=== PATIENT | female | born 1950 | race Caucasian/White ===

== ENCOUNTER 2016-10-20 14:28 | Outpatient (CLI) | payer MEDICARE ==
--- NOTE | 2016-10-26 13:17 | Mammography Report ---
DIGITAL SCREENING MAMMOGRAM: 10/20/2016 CLINICAL INDICATION: A 66-year-old for screening. COMPARISON: 08/2015, 08/2014, 07/2013, 11/2010, 10/2009 TECHNIQUE: Routine CC and MLO projections were obtained of the breasts. FINDINGS: Scattered fibroglandular tissue is present within the breasts. There are no dominant kesha s, suspicious microcalcifications, or secondary signs of malignancy. In comparison to the previous st udies, there are no significant changes. ASSESSMENT: NO MAMMOGRAPHIC EVIDENCE OF MALIGNANCY. NO SIGNIFICANT INTERVAL CHANGES. RECOMMENDATION: Screening mammography is recommended annually. BIRADS category 1 - negative. STANDARD QUALIFYING STATEMENTS 1. This examination was reviewed with the aid of Computed-Aided Detection (CAD). 2. A negative or benign imaging report should not delay biopsy if clinically suspicious findings are present. Consider surgical consultation if warranted. More than 5% of cancers are not identified by i maging. 3. Dense breasts may obscure an underlying neoplasm. JOB #: [id number] EXT JOB #:[id number]
== END 2016-10-20 14:29 | disposition home or self-care (01) ==
LOC: DI 14:28
PROVIDERS: ATTEND Internal Medicine
DX: Z12.31 Encounter for screening mammogram for malignant neoplasm of breast (principal)
CPT/HCPCS: 77067

== ENCOUNTER 2017-11-01 15:10 | Outpatient (CLI) | payer MEDICARE ==
--- NOTE | 2017-11-03 15:04 | Mammography Report ---
Procedure Date: 11/01/2017 Accession Number: [id number] / [id number] Procedure: DENNIS - Screening Mammo Dig Bilat CPT Code: FULL RESULT: EXAM: Screening Mammo Dig Bilat DATE: 11/01/2017 4:00 PM CLINICAL HISTORY: 67-year-old for screening COMPARISON: 10/20/2016, 09/11/2015, 09/03/2014, 08/24/2013, 08/17/2013, 11/21/2010, 11/15/2009 TECHNIQUE: Bilateral CC and MLO views were obtained. FINDINGS: The breasts demonstrate scattered fibroglandular densities bilaterally. No suspicious masses, clustered microcalcifications, or regions of architectural distortion are identified. IMPRESSION: Negative examination RECOMMENDATION: Routine annual screening unless otherwise clinically indicated. BIRADS CATEGORY 1: Negative STANDARD QUALIFYING STATEMENTS: 1. This examination was reviewed with the aid of Computer-Aided Detection (CAD). 2. A negative or benign imaging report should not delay biopsy if clinically suspicious findings are present. Consider surgical consultation if warrented. More than 5% of cancers are not identified by imaging. 3. Dense breasts may obscure an underlying neoplasm.
== END 2017-11-01 15:11 | disposition home or self-care (01) ==
LOC: DI 15:10
PROVIDERS: ATTEND Internal Medicine
DX: Z12.31 Encounter for screening mammogram for malignant neoplasm of breast (principal)
CPT/HCPCS: 77067

== ENCOUNTER 2018-11-19 14:47 | Emergency (ER) | payer MEDICARE ==
[2018-11-19] MEDS ORDERED: BUFFERED LIDOCAINE 10 ML SYRINGE SUBQ STA (15:09)
[2018-11-19] MEDS ORDERED: TETANUS/DIPHTHERIA/PERTUSSIS 0.5 ML SYRINGE IM ONE (15:09)
--- NOTE | 2018-11-19 15:11 | ED Physician Documentation ---
PD HPI UPPER EXT INJURY - Stated complaint Stated Complaint: RT FINGER SWELLING - Chief complaint Chief Complaint: Wound - History obtained from History obtained from: Patient - History of Present Illness Location: Right (Almost 2 weeks ago she tripped and jammed her hand on wood in the [place] and has a persistent wound with potential splinter in the right hand.) Review of Systems Constitutional: denies: Fever, Chills Respiratory: denies: Dyspnea, Cough GI: denies: Abdominal Pain, Nausea, Vomiting PD PAST MEDICAL HISTORY - Present Medications Home Medications: Ambulatory Orders Medication Instructions Recorded Confirmed Beclomethasone Dipropionate [Qvar] 1 - 2 gm IH DAILY 01/12/13 09/12/18 Ibuprofen [Advil] 100 mg PO DAILY PRN 01/12/13 09/12/18 Montelukast Sodium [Singulair] 10 mg PO DAILY 01/12/13 09/12/18 Multivitamin [Multivitamins] 1 each PO DAILY 01/12/13 09/12/18 Calcium Carb, Citrate/Vit D3 500 mg PO DAILY 02/11/15 09/12/18 [Calcium + D3 ER Tablet] Amox/Clav 875/125 [Augmentin] 1 each PO Q12H #14 tablet 11/19/18 - Allergies Allergies/Adverse Reactions: Allergies Allergy/AdvReac Type Severity Reaction Status Date / Time grass pollen Allergy Mild Rash Verified 09/12/18 16:34 grass pollen-perennial rye, Allergy Mild Rash Verified 09/12/18 16:34 standar [grass poll-perennial rye,std] dust Allergy Mild STUFFY NOSE Uncoded 09/12/18 16:34 - Social History Does the pt smoke?: No Smoking Status: Never smoker PD ED PE NORMAL - Vitals Vital signs reviewed: Yes - General General: Alert and oriented X 3, No acute distress - Extremities Extremities: Other (There is a purulent wound on the palmar side of the right hand at the level of the second MCP with a little bit of drainage that was cultured during examination, potential palpable foreign body, not quite sure. Full range of motion without evidence of flexor tenosynovitis. No spreading cellulitis.) - Neuro Neuro: Alert and oriented X 3, Normal speech Results - Vitals Vitals: Vital Signs - 24 hr 11/19/18 14:51 Temperature 36.5 C Heart Rate 62 Respiratory 16 Rate Blood Pressure 157/65 H O2 Saturation 94 Oxygen O2 Source Room air Procedures - General procedure General procedure: The wound on the left hand was prepped and draped and locally infiltrated with lidocaine and a tiny incision was made and a wood foreign body was found and expressed. The patient tolerated this well. Departure - Departure Disposition: 01 Home, Self Care Clinical Impression: Open wound with foreign body Condition: Good Record reviewed to determine appropriate education?: Yes Instructions: ED Wound Care Prescriptions: Amox/Clav 875/125 [Augmentin] 1 each PO Q12H #14 tablet Comments: Return if you develop increasing pain, swelling, redness. We are performing a wound culture, if an antibiotic changes necessary we will call you in about 3 days.
[2018-11-19] MEDS ORDERED: AMOX/CLAV 875 MG/125 MG TABLET PO STA (15:35)
[2018-11-19 16:30] VITALS: BP 132/63
== END 2018-11-19 16:31 | disposition home or self-care (01) ==
LOC: ED 14:47
DX: S61.441A Puncture wound with foreign body of right hand, initial encounter (principal); W01.0XXA Fall on same level from slipping, tripping and stumbling without subsequent striking against object, initial encounter; Y92.821 Forest as the place of occurrence of the external cause
CPT/HCPCS: 10120; 87070; 87205; 90471; 90715; 99283; A9270

== ENCOUNTER 2019-02-07 08:50 | Outpatient (CLI) | payer MEDICARE ==
--- NOTE | 2019-02-07 12:36 | Mammography Report ---
Reason: ROUTINE MAMMO Procedure Date: 02/07/2019 Accession Number: [id number] / [id number] Procedure: DENNIS - Screening Mammo w/Brodie CPT Code: FULL RESULT: EXAM: Screening Mammo w/Brodie DATE: 02/07/2019 9:19 AM CLINICAL HISTORY: Routine screening TECHNIQUE: (B) - Bilateral CC and MLO views were obtained. COMPARISON: 11/01/2017, 10/20/2016, 09/11/2015 and 09/03/2014 PARENCHYMAL PATTERN: (A) - The breasts demonstrate scattered fibroglandular densities bilaterally. FINDINGS: No significant interval change. There are no suspicious masses, calcifications, or areas of distortion. IMPRESSION: Negative examination. BI-RADS category 1. RECOMMENDATION: (ANNUAL) - Recommend routine annual screening mammography. BI-RADS CATEGORY: (1) - Negative. STANDARD QUALIFYING STATEMENTS: 1. This examination was not reviewed with the aid of Computer-Aided Detection (CAD). 2. A negative or benign imaging report should not preclude biopsy if clinically suspicious findings are present. 3. Dense breasts may obscure an underlying neoplasm. 4. This examination was reviewed with the aid of 3D breast imaging (tomosynthesis).
== END 2019-02-07 08:51 | disposition home or self-care (01) ==
LOC: DI 08:50
PROVIDERS: ATTEND Internal Medicine
DX: Z12.31 Encounter for screening mammogram for malignant neoplasm of breast (principal)
CPT/HCPCS: 77063; 77067

== ENCOUNTER 2019-04-03 10:39 | Outpatient (CLI) | payer MEDICARE ==
[2019-04-03] MEDS ORDERED: IOVERSOL 320 50 ML VIAL ONE ×2 (10:56→11:00)
[2019-04-03] MEDS ORDERED: IOVERSOL 320 100 ML VIAL IVP ONE ×2 (10:57→12:33)
[2019-04-03] MEDS ORDERED: IOVERSOL 320 50 ML VIAL PO ONE (12:33)
--- NOTE | 2019-04-04 11:38 | CT Report ---
Reason: COLON CA Procedure Date: 04/03/2019 Accession Number: [id number] / [id number] Procedure: CT - Abdomen/Pelvis W CPT Code: Final Report FULL RESULT: EXAM: CT ABDOMEN AND PELVIS EXAM DATE: 04/03/2019 12:31 PM. CLINICAL HISTORY: COLON CA. COMPARISONS: ABDOMEN/PELVIS W/ 04/21/2018 9:36 AM. TECHNIQUE: Routine helical CT imaging was performed through the abdomen and pelvis. IV contrast: OPTI 320 100ML. Enteric contrast: No. Reconstructions: Coronal and sagittal. In accordance with CT protocol optimization, one or more of the following dose reduction techniques were utilized for this exam: automated exposure control, adjustment of mA and/or KV based on patient size, or use of iterative reconstructive technique. FINDINGS: Lung Bases: Unremarkable. Pericardial lymph nodes are again demonstrated an increased in size measuring up to 8 mm, previously 4 mm in short axis (series 3, image 11), 7 mm, previously 4 mm (series 3, image 13) and 8 mm, previously 7 mm (series 3, image 12). Liver: Normal. No masses. Gallbladder/Bile Ducts: The gallbladder is absent. Spleen: Normal. Pancreas: Normal. Adrenal Glands: Normal. Kidneys: Left renal cyst redemonstrated measuring up to 3.1 cm, previously 2.7 cm, and 19 HU consistent with a simple cyst. No hydronephrosis. No solid lesions. Peritoneal Cavity/Bowel: No bowel obstruction or inflammatory process associated with the bowel. Peritoneal carcinomatosis is redemonstrated with ill-defined soft tissue along the anterior abdomen and right upper pelvis (series 3, image 56). This appears similar to the prior examination. There is a peritoneal implant along the anterior-inferior aspect of the liver measuring up to 19 mm, previously 17 mm (series 3, image 28) and a peritoneal implant along the posterior inferior aspect of the liver measuring 11 mm, previously 7 mm (series 3, image 31). The appendix is well visualized and normal. Pelvic Organs: Normal. The bladder and visualized pelvic organs are within normal limits. Vasculature: No aneurysms or other significant abnormality. Bones: No significant abnormality. Other: Multiple new soft tissue nodules in the subcutaneous fat overlying the left and right lower back measuring up to 14 mm on (series 3, image 54), 12 mm on (series 3, image 47) and 12 mm on (series 3, image 47). IMPRESSION: 1. Multiple new soft tissue nodules in the subcutaneous fat overlying the left and right lower back measuring up to 14 mm. This is nonspecific but metastatic disease is not excluded. 2. Pericardial lymph nodes are again demonstrated an increased in size, as above. 3. Peritoneal carcinomatosis is again demonstrated with mesenteric implants along the anterior aspect of the abdomen and right upper pelvis, similar to the prior examination with increasing size of mesenteric implants along the anterior and posterior inferior aspect of the liver, as above. 4. Retroperitoneal lymphadenopathy is again demonstrated and slightly increased in size from the prior examination, as above. 5. Overall there appears to be a continued subtle progression of metastatic disease with new implants in the subcutaneous fat along the lower back. RADIA
--- NOTE | 2019-04-04 12:07 | CT Report ---
Reason: COLON CA Procedure Date: 04/03/2019 Accession Number: [id number] / [id number] Procedure: CT - CHEST W CPT Code: Final Report FULL RESULT: EXAM: CT CHEST EXAM DATE: 04/03/2019 12:31 PM. CLINICAL HISTORY: COLON CA. COMPARISONS: ABDOMEN/PELVIS W04/21/2018 9:36 AM CHEST W04/21/2018 9:36 AM. TECHNIQUE: Routine helical CT imaging was performed through the chest. IV contrast: None. Reconstructions: Coronal and sagittal. In accordance with CT protocol optimization, one or more of the following dose reduction techniques were utilized for this exam: automated exposure control, adjustment of mA and/or KV based on patient size, or use of iterative reconstructive technique. FINDINGS: Lungs/Pleura: Pleural nodule along the posterior medial aspect of the left lower lobe measuring 4 mm, previously 3 mm (series 3, image 266). There is and adjacent pleural nodule measuring 4 mm, previously 4 mm. No focal consolidation or pleural effusion. Mediastinum: Multiple enlarging pericardial lymph nodes described in detail in the abdominal CT report from the same day 04/04/2019. Bones: Unremarkable. Visualized Abdomen: Unremarkable. Other: None. IMPRESSION: 1. Pleural nodules along the left lower lobe posteriorly are similar in size and number to the prior examination with no enlarging nodules or suspicious pulmonary nodules or masses. 2. Multiple enlarging pericardial lymph nodes are described in detail in the abdominal CT report from the same day dated 04/04/2019. RADIA
== END 2019-04-03 10:40 | disposition home or self-care (01) ==
LOC: DI 10:39
PROVIDERS: ATTEND Internal Medicine Hematology & Oncology
DX: C7A.019 Malignant carcinoid tumor of the small intestine, unspecified portion (principal); C7B.04 Secondary carcinoid tumors of peritoneum; C7B.09 Secondary carcinoid tumors of other sites; R91.8 Other nonspecific abnormal finding of lung field; R59.0 Localized enlarged lymph nodes
CPT/HCPCS: 71260; 74177; Q9967

== ENCOUNTER 2019-05-04 20:48 | Emergency (ER) | payer MEDICARE ==
[2019-05-04] MEDS ORDERED: SODIUM CHLORIDE 0.9% 1,000 ML IV ONE (21:13)
[2019-05-04] MEDS ORDERED: MORPHINE 2 MG/ML CARPUJECT IVP STA (21:13)
[2019-05-04] MEDS ORDERED: ONDANSETRON 4 MG/2 ML VIAL IVP STA ×2 (21:13→23:08)
[2019-05-04 21:14] LABS: BILIRUBIN,URINE NEGATIVE (NEGATIVE); CLARITY,URINE CLEAR (CLEAR); GLUCOSE, URINE (UA) NEGATIVE (NEGATIVE); KETONES,URINE (UA) 15 mg/dL (NEGATIVE); LEUKOCYTE ESTERASE, URINE NEGATIVE (NEGATIVE); NITRITE,URINE NEGATIVE (NEGATIVE); OCCULT BLOOD,URINE TRACE-INTA (NEGATIVE); PROTEIN,URINE >=300 mg/dL (NEGATIVE); UROBILINOGEN,URINE 0.2 (NORMAL) E.U./dL (NORMAL)
--- NOTE | 2019-05-04 21:15 | ED Physician Documentation ---
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 Patient states that the pain began around 24 hours ago and has been at times sharp but mostly constant and located more in her right flank but radiates can diffusely throughout her abdomen. She has had 3 episodes of vomiting is been unable to keep down fluids. She has also had some looser stool, though at baseline her stool is somewhat loose. She denies fever. No dysuria. Review of Systems Constitutional: denies: Fever Cardiac: denies: Chest pain / pressure Respiratory: denies: Dyspnea GI: reports: Abdominal Pain, Vomiting, Diarrhea : denies: Dysuria Neurologic: denies: Generalized weakness Immunocompromised: reports: Other (Hx neuroendocrine cancer) PD PAST MEDICAL HISTORY - Past Medical History Respiratory: Asthma GI: Other (Neuroendocrine cancer with peritoneal metastasis) - Past Surgical History General: Other (Tumor resections) - Present Medications Home Medications: Ambulatory Orders Medication Instructions Recorded Confirmed Beclomethasone Dipropionate [Qvar] 1 - 2 gm IH DAILY 01/12/13 04/10/19 Ibuprofen [Advil] 100 mg PO DAILY PRN 01/12/13 04/10/19 Montelukast Sodium [Singulair] 10 mg PO DAILY 01/12/13 04/10/19 Multivitamin [Multivitamins] 1 each PO DAILY 01/12/13 04/10/19 Calcium Carb, Citrate/Vit D3 500 mg PO DAILY 02/11/15 04/10/19 [Calcium + D3 ER Tablet] Amox/Clav 875/125 [Augmentin] 1 each PO Q12H #14 tablet 11/19/18 04/10/19 Ondansetron Odt [Zofran] 4 mg TL Q6H PRN #10 tablet 05/04/19 - Allergies Allergies/Adverse Reactions: Allergies Allergy/AdvReac Type Severity Reaction Status Date / Time grass pollen Allergy Mild Rash Verified 05/04/19 20:55 grass pollen-perennial rye, Allergy Mild Rash Verified 05/04/19 20:55 standar [grass poll-perennial rye,std] dust Allergy Mild STUFFY NOSE Uncoded 05/04/19 20:55 - Living Situation Living Arrangement: reports: At home - Social History Does the pt smoke?: No Smoking Status: Never smoker PD ED PE NORMAL - Vitals Vital signs reviewed: Yes - General General: Alert and oriented X 3, Other (Non-toxic, mildly uncomfortable) - HEENT HEENT: PERRL - Neck Neck: Supple, no meningeal sign - Cardiac Cardiac: RRR, No murmur - Respiratory Respiratory: Clear bilaterally - Abdomen Abdomen: Normal bowel sounds, Soft, Non distended, Other (Mildly diffusely tender, slightly worse in RLQ, no guarding.) - Derm Derm: Warm and dry - Extremities Extremities: No deformity - Neuro Neuro: Alert and oriented X 3 - Psych Psych: Normal mood, Normal affect Results - Vitals Vitals: Vital Signs - 24 hr 05/04/19 05/04/19 05/04/19 20:52 21:03 23:14 Temperature 36.6 C 36.6 C Heart Rate 65 65 62 Respiratory 18 18 16 Rate Blood Pressure 164/70 H 164/70 H 153/77 H O2 Saturation 98 98 93 Oxygen O2 Source Room air - Labs Labs: Laboratory Tests 05/04/19 05/04/19 05/04/19 21:05 21:14 21:14 WBC 10.8 RBC 5.20 Hgb 15.4 Hct 45.3 MCV 87.1 MCH 29.6 MCHC 34.0 RDW 12.8 Plt Count 287 MPV 9.7 Neut # (Auto) 9.7 H Lymph # (Auto) 0.7 L Navarro # (Auto) 0.3 Eos # (Auto) 0.0 Baso # (Auto) 0.0 Absolute Nucleated RBC 0.00 Nucleated RBC % 0.0 Sodium 136 Potassium 3.4 L Chloride 98 L Carbon Dioxide 24 Anion Gap 14.0 H BUN 17 Creatinine 0.8 Estimated GFR (MDRD) 71 L Glucose 152 H Calcium 9.3 Total Bilirubin 1.0 AST 29 ALT 26 Alkaline Phosphatase 90 Total Protein 8.4 H Albumin 4.6 Globulin 3.8 Albumin/Globulin Ratio 1.2 Lipase 28 Urine Color YELLOW Urine Clarity CLEAR Urine pH 6.0 Ur Specific [place] >=1.030 H Urine Protein >=300 H Urine Glucose (UA) NEGATIVE Urine Ketones 15 H Urine Occult Blood TRACE-INTA Urine Nitrite NEGATIVE Urine Bilirubin NEGATIVE Urine Urobilinogen 0.2 (NORMAL) Ur Leukocyte Esterase NEGATIVE Urine RBC 0-5 Urine WBC 0-3 Ur Squamous Epith Cells FEW Squamous Urine Bacteria None Seen Urine Mucus Moderate Strands Ur Microscopic Review INDICATED Urine Culture Comments NOT INDICATED - Rads (name of study) CT abd/pelvis W Radiology: Other (Stable adenopathy and peritoneal carcinamatosis, no acute change or obstruction or perforation.) PD MEDICAL DECISION MAKING - ED course Complexity details: considered differential (Obstruction, gastroenteritis, bowel perforation, pancreatitis, enteritis, electrolyte abnormality,) ED course: Pt is non-toxic on arrival, she has mild abdominal tenderness, vital signs unremarkable. She was given zofran, fluids, morphine. CBC unremarkable, abdominal panel unremarkable other than mild hypokalemia of 3.4, UA negative. CT scan shows no acute changes, obstruction, or obvious cause of her pain. She has not had any blood in her stool and her history makes mesenteric ischemia highly unlikely. Given she has had crampy pain, vomiting, and looser stool, gastroenteritis is possible. After zofran she is able to tolerate PO fluids and is feeling well, has minimal discomfort. I discussed the results, patient is comfortable going home and she understands that if her symptoms are worsening or she has any new concerning symptoms she does need re-evaluation given her extensive abdominal history. Pt was discharged home in the care of family. Departure - Departure Disposition: 01 Home, Self Care Clinical Impression: Vomiting Qualifiers: Vomiting type: unspecified Vomiting Intractability: non-intractable Nausea presence: with nausea Qualified Code(s): R11.2 - Nausea with vomiting, unspecified Abdominal pain Qualifiers: Abdominal location: unspecified location Qualified Code(s): R10.9 - Unspecified abdominal pain Condition: Good Instructions: ED Abdominal Pain Unkn Cause Follow-Up: Whit Lanier MD [Primary Care Provider] - Within 1 week Prescriptions: Ondansetron Odt [Zofran] 4 mg TL Q6H PRN #10 tablet PRN Reason: Nausea / Vomiting Comments: You were seen today for abdominal pain and vomiting. Your labs are reassuring, your potassium was a tiny bit low at 3.4. Your CT scan did not show any obvious explanation for your pain. A stomach bug/gastroenteritis is one possibility. I am glad that you are feeling better. You may use the Zofran for nausea and vomiting, and please try to hydrate adequately. If you are developing worsening abdominal pain, vomiting despite the Zofran, fever, or any other concerning symptoms, please return to the emergency department. Even if you are feeling better, please follow-up with your primary care provider. Discharge Date/Time: 05/05/19 00:20
[2019-05-04 21:23] LABS: BASOPHILS % (AUTO) 0.3 %; HGB - HEMOGLOBIN 15.4 g/dL (12.0-16.0); LYMPHOCYTES # (AUTO) 0.7 10^3/uL (1.5-3.5); LYMPHOCYTES % (AUTO) 6.9 %; MEAN CORPUSCULAR HEMOGLOBIN 29.6 pg (27.0-31.0); MEAN CORPUSCULAR VOLUME 87.1 fL (81.0-99.0); MEAN PLATELET VOLUME 9.7 fL (7.9-10.8); MONOCYTES # (AUTO) 0.3 10^3/uL (0.0-1.0); MONOCYTES % (AUTO) 2.4 %; NEUTROPHILS # (AUTO) 9.7 10^3/uL (1.5-6.6); NEUTROPHILS % (AUTO) 89.8 %; PLT - PLATELET COUNT 287 10^3/uL (130-450); RED CELL DISTRIBUTION WIDTH 12.8 % (12.0-15.0); WHITE BLOOD COUNT 10.8 x10^3/uL (4.8-10.8)
[2019-05-04 21:24] LABS: BACTERIA,URINE None Seen /HPF (None Seen); MUCUS,URINE Moderate Strands; RBC,URINE 0-5 /HPF (0-5); SQUAMOUS EPITHELIAL CELL,UR FEW Squamous (<= Few)
[2019-05-04 21:37] LABS: ALBUMIN 4.6 g/dL (3.2-5.5); ALBUMIN/GLOBULIN RATIO 1.2 (1.0-2.2); CALCIUM 9.3 mg/dL (8.5-10.3); CREATININE 0.8 mg/dL (0.4-1.0); TOTAL PROTEIN 8.4 g/dL (6.7-8.2)
[2019-05-04] MEDS ORDERED: IOVERSOL 320 100 ML VIAL IVP ONE ×2 (21:55→22:15)
--- NOTE | 2019-05-04 23:00 | CT Report ---
Reason: Abdominal and flank pain,vom, hx neuroendocrine CA Procedure Date: 05/04/2019 Accession Number: [id number] / [id number] Procedure: CT - Abdomen/Pelvis W CPT Code: Final Report FULL RESULT: EXAM: CT ABDOMEN AND PELVIS EXAM DATE: 05/04/2019 10:17 PM. CLINICAL HISTORY: Abdominal and flank pain,vom, hx neuroendocrine CA. COMPARISONS: ABDOMEN/PELVIS W/ 04/03/2019 12:19 PM ABDOMEN/PELVIS W/ 04/27/2017 11:58 AM. TECHNIQUE: Routine helical CT imaging was performed through the abdomen and pelvis. IV contrast: OPTI 320 100ML. Enteric contrast: No. Reconstructions: Coronal and sagittal. In accordance with CT protocol optimization, one or more of the following dose reduction techniques were utilized for this exam: automated exposure control, adjustment of mA and/or KV based on patient size, or use of iterative reconstructive technique. FINDINGS: Lung Bases: Unremarkable. Liver: Diffuse fatty infiltration. Tumor studding along the liver surface. Gallbladder/Bile Ducts: Postoperative changes of cholecystectomy. No biliary dilatation. Spleen: Normal. Pancreas: Normal. Adrenal Glands: Normal. Kidneys: Cortical cysts. No solid mass, hydronephrosis, or nephrolithiasis. Peritoneal Cavity/Bowel: Postoperative changes in the small bowel of the lower abdomen. Stable omental studding, mesenteric, retrocrural, and retroperitoneal adenopathy. No evidence of bowel obstruction or perforation. Pelvic Organs: Postoperative changes of hysterectomy. Peritoneal studding in the pelvis. Vasculature: Atherosclerotic calcifications. Bones: No significant abnormality. Other: Stable soft tissue nodules in the posterior subcutaneous of the back. IMPRESSION: Stable adenopathy and peritoneal carcinomatosis. No evidence of bowel obstruction or perforation. RADIA
[2019-05-04 23:14] VITALS: BP 153/77
--- NOTE | 2019-05-05 16:37 | ED Physician Documentation ---
ED Addendum - Addendum Addendum: 05/05/19 16:36 Zofran is not covered by her insurance, changed to Phenergan 25 mg p.o. every 6 hours as needed nausea vomiting dispense #10
== END 2019-05-05 00:20 | disposition home or self-care (01) ==
LOC: ED 20:48
DX: R10.84 Generalized abdominal pain (principal); R11.2 Nausea with vomiting, unspecified; E87.6 Hypokalemia; C78.6 Secondary malignant neoplasm of retroperitoneum and peritoneum; Z85.89 Personal history of malignant neoplasm of other organs and systems; Z90.49 Acquired absence of other specified parts of digestive tract; Z90.710 Acquired absence of both cervix and uterus
CPT/HCPCS: 36415; 74177; 80053; 81001; 83690; 85025; 96361; 96374; 96375; 96376; 99283; 99284; Q9967; 81003; 87086

== ENCOUNTER 2019-09-01 16:46 | Outpatient (CLI) | payer MEDICARE ==
[2019-09-01 17:13] LABS: ALBUMIN 4.3 g/dL (3.2-5.5); ALBUMIN/GLOBULIN RATIO 1.3 (1.0-2.2); BASOPHILS # (AUTO) 0.1 10^3/uL (0.0-0.1); BASOPHILS % (AUTO) 1.3 %; BILIRUBIN,TOTAL 0.7 mg/dL (0.2-1.0); CALCIUM 9.1 mg/dL (8.5-10.3); CREATININE 0.9 mg/dL (0.4-1.0); EOSINOPHILS # (AUTO) 0.5 10^3/uL (0.0-0.7); EOSINOPHILS % (AUTO) 10.2 %; HGB - HEMOGLOBIN 13.3 g/dL (12.0-16.0); MEAN CORPUSCULAR HEMOGLOBIN 30.4 pg (27.0-31.0); MEAN CORPUSCULAR HGB CONC 33.4 g/dL (32.0-36.0); MEAN CORPUSCULAR VOLUME 91.1 fL (81.0-99.0); MEAN PLATELET VOLUME 9.3 fL (7.9-10.8); MONOCYTES # (AUTO) 0.5 10^3/uL (0.0-1.0); MONOCYTES % (AUTO) 10.2 %; NEUTROPHILS # (AUTO) 2.5 10^3/uL (1.5-6.6); NEUTROPHILS % (AUTO) 56.1 %; PLT - PLATELET COUNT 192 10^3/uL (130-450); RED BLOOD COUNT 4.37 10^6/uL (4.20-5.40); RED CELL DISTRIBUTION WIDTH 12.8 % (12.0-15.0); TOTAL PROTEIN 7.5 g/dL (6.7-8.2); WHITE BLOOD COUNT 4.5 x10^3/uL (4.8-10.8)
== END 2019-09-01 16:47 | disposition home or self-care (01) ==
LOC: LAB 16:46
PROVIDERS: ATTEND Specialist
DX: C7A.019 Malignant carcinoid tumor of the small intestine, unspecified portion (principal)
CPT/HCPCS: 36415; 80053; 85025

== ENCOUNTER 2019-12-26 08:36 | Outpatient (CLI) | payer MEDICARE ==
[2019-12-26 08:50] LABS: BASOPHILS # (AUTO) 0.1 10^3/uL (0.0-0.1); BASOPHILS % (AUTO) 1.6 %; EOSINOPHILS # (AUTO) 0.4 10^3/uL (0.0-0.7); EOSINOPHILS % (AUTO) 11.1 %; HGB - HEMOGLOBIN 12.9 g/dL (12.0-16.0); LYMPHOCYTES # (AUTO) 0.6 10^3/uL (1.5-3.5); LYMPHOCYTES % (AUTO) 17.8 %; MEAN CORPUSCULAR HEMOGLOBIN 31.2 pg (27.0-31.0); MEAN CORPUSCULAR VOLUME 91.5 fL (81.0-99.0); MEAN PLATELET VOLUME 8.4 fL (7.9-10.8); MONOCYTES # (AUTO) 0.4 10^3/uL (0.0-1.0); MONOCYTES % (AUTO) 13.7 %; NEUTROPHILS # (AUTO) 1.8 10^3/uL (1.5-6.6); NEUTROPHILS % (AUTO) 55.5 %; PLT - PLATELET COUNT 150 10^3/uL (130-450); RED BLOOD COUNT 4.14 10^6/uL (4.20-5.40); RED CELL DISTRIBUTION WIDTH 12.7 % (12.0-15.0); WHITE BLOOD COUNT 3.2 x10^3/uL (4.8-10.8)
[2019-12-26 09:03] LABS: ALBUMIN 4.2 g/dL (3.2-5.5); ALBUMIN/GLOBULIN RATIO 1.4 (1.0-2.2); BILIRUBIN,TOTAL 0.4 mg/dL (0.2-1.0); CALCIUM 9.1 mg/dL (8.5-10.3); TOTAL PROTEIN 7.1 g/dL (6.7-8.2)
== END 2019-12-26 08:37 | disposition home or self-care (01) ==
LOC: LAB 08:36
PROVIDERS: ATTEND Specialist
DX: C7A.019 Malignant carcinoid tumor of the small intestine, unspecified portion (principal)
CPT/HCPCS: 36415; 80053; 85025

== ENCOUNTER 2020-08-02 18:33 | Outpatient (CLI) | payer MEDICARE | END 2020-08-02 18:34 | disposition home or self-care (01) | LOC: COV 18:33 | PROVIDERS: ATTEND Orthopaedic Surgery | DX: Z01.812 Encounter for preprocedural laboratory examination (principal); R22.31 Localized swelling, mass and lump, right upper limb; Z20.822 Contact with and (suspected) exposure to COVID-19 ==

== ENCOUNTER 2020-08-07 11:30 | Day surgery (SDC) | payer MEDICARE ==
[~2020-08-07 11:30] MED LIST: LACTATED RINGERS 1,000 ML IV ONE
[2020-08-07] MEDS ORDERED: BUPIVACAINE 0.25% PF 30 ML VIAL ONE (11:50)
--- NOTE | 2020-08-07 12:47 | ANESTHESIA ---
Pre-Anesthesia VS, & Labs - Diagnosis left finger mass - Procedure left finger mass excision Vital Signs: Temp Pulse Resp BP Pulse Ox 36.7 C 57 L 16 138/64 H 97 08/07/20 11:42 08/07/20 11:42 08/07/20 11:42 08/07/20 11:42 08/07/20 11:42 Height: 5 ft 3 in Weight (kg): 79.5 kg Body Mass Index: 31.0 BMI Classification: Obese - NPO >8 hours - Is Patient ?: No Home Medications and Allergies Home Medications: Ambulatory Orders Ascorbic Acid [Vitamin C] 1,000 mg PO DAILY 07/30/20 Calcium/Magnesium/Vit D3/[place] [Calcium-Mag Oxide-Vit D3 Sftgl] 1 each PO DAILY 07/30/20 Ciclesonide [[place]ves[place]] 2 puffs IH BID 07/30/20 Lanreotide Acetate [Somatuline Depot] 120 mg SQ ONCE 07/30/20 Psyllium [Metamucil] 1 each PO DAILY 07/30/20 Montelukast Sodium [Singulair] 10 mg PO DAILY 01/12/13 Multivitamin [Multivitamins] 1 each PO DAILY 01/12/13 Ascorbic Acid [Vitamin C] 1,000 mg PO DAILY 07/30/20 Calcium/Magnesium/Vit D3/[place] [Calcium-Mag Oxide-Vit D3 Sftgl] 1 each PO DAILY 07/30/20 Ciclesonide [[place]ves[place]] 2 puffs IH BID 07/30/20 Lanreotide Acetate [Somatuline Depot] 120 mg SQ ONCE 07/30/20 Psyllium [Metamucil] 1 each PO DAILY 07/30/20 Allergies/Adverse Reactions: Allergies Allergy/AdvReac Type Severity Reaction Status Date / Time grass pollen Allergy Mild Rash Verified 08/07/20 12:08 grass pollen-perennial rye, Allergy Mild Rash Verified 08/07/20 12:08 standar [grass poll-perennial rye,std] house dust Allergy Mild Stuffy Nose Verified 08/07/20 12:08 Anes History & Medical History - Anesthetic History Anesthesia Complications: reports: No previous complications Family history of Anesthesia Complications: Denies Family history of Malignant Hyperthermia: Denies - Medical History Cardiovascular: reports: High cholesterol Pulmonary: reports: Asthma Gastrointestinal: reports: Other Urinary: reports: None Musculoskeletal: reports: Osteopenia Endocrine/Autoimmune: reports: None Skin: reports: None Smoking Status: Never smoker - Surgical History General: reports: Other Gynecologic: reports: section, Hysterectomy, Oophrectomy Orthopedic: reports: Carpal Tunnel surgery Exam Dental: WNL Mouth Openin Fingerbreadth Neck Mobility: Normal Mallampati classification: II Thyromental Distance: 4-6 cm Respiratory: Lungs clear Cardiovascular: Regular rate Abdomen: Normal bowel sounds Extremities: No clubbing Mental/Cognitive Status: Alert/Oriented X3 Cognitive Status: Within normal limits Plan Anesthesia Type: MAC Consent for Procedure(s) Verified and Reviewed: Yes Code Status: Attempt Resuscitation ASA classification: 2-Mild systemic disease Is this case an emergency?: No
[2020-08-07] MEDS ORDERED: fentaNYL 100 MCG/2 ML VIAL ONE (12:52)
[2020-08-07] MEDS ORDERED: MIDAZOLAM 2 MG/2 ML VIAL ONE (12:52)
[2020-08-07] MEDS ORDERED: PROPOFOL 200 MG/20 ML VIAL IVP ONE (12:55)
[2020-08-07] MEDS ORDERED: PROPOFOL 500 MG/50 ML 500 MG/50 ML VIAL ONE (12:55)
[2020-08-07] MEDS ORDERED: LIDOCAINE 2%-EPI 1:100000 20 ML MDV SUBQ ONE ×2 (13:26)
[2020-08-07] MEDS ORDERED: BUPIVACAINE 0.25% PF 30 ML VIAL SUBQ ONE ×2 (13:26)
[2020-08-07] MEDS ORDERED: LIDOCAINE 2%-EPI 1:100000 20 ML MDV ONE (13:31)
--- NOTE | 2020-08-07 13:51 | OPERATIVE REPORT ---
Operative Report - General Procedure Date: 08/07/20 Planned Procedure: Excision of mass volar aspect of right index finger Pre-Op Diagnosis: Benign soft tissue mass right index finger Procedure Performed: Excision of benign soft tissue mass volar aspect right index finger Post Op Diagnosis: Same as preop diagnosis, most likely epidermoid inclusion cyst - Procedure Note Primary Surgeon: Devyn Trujillo MD Secondary Surgeon: Travis MEDEROS Anesthesia Provider: Lawanda Rodriguez CRNA Anesthesia Technique: MAC Pathology: Mass sent to pathology Estimated Blood Loss (mL): 5 Indications: This is a 69-year-old woman with a enlarging mass about the volar index finger for about 5 months or more. She does have a history of foreign body, wood sliver that into the same area about a year ago. The mass is uncomfortable. She has had previous carpal tunnel release and has no numbness in index finger. She does not have any triggering of the index finger. Findings: The mass was well localized to the volar aspect of the proximal phalanx of the right index finger it was superficial to the flexor tendon but contiguous with the flexor tendon. The mass had a enclosed sac that could be from the underlying flexor tendon sheath. The mass was somewhere between 5 to 10 mm in size, well localized. The cyst contents appeared to be typical of an epidermoid inclusion cyst. No foreign body was identified. The cyst contents were a creamy fluid. Complications: None noted - Other Other Information/Narrative: The patient was brought to the operating room and placed in a supine position she was prepped and draped in a sterile manner in the usual fashion with the arm over an arm table. A pneumatic tourniquet was applied to the right arm but was not utilized. A timeout procedure was performed by the entire operating room team and all were in agreement. A mixture of 2% lidocaine with epinephrine and 0.25% Marcaine without epinephrine, 50-50 was injected with a 25-gauge needle to perform a distal metacarpal block to the index finger. A physician assistant broker was utilized in the procedure to protect the neurovascular bundles and provide exposure while exercising the mass. A zigzag incision was made with the apex in an ulnar direction, centered over the mass. The mass was delineated with tenotomy scissors dissecting from distal to proximal and dorsal to volar. The neurovascular bundles were protected. The mass excised completely. The contents of the mass have been described. The wound was irrigated. The incision was closed with 4-0 nylon, 3 stitches. A dry sterile dressing was applied. Patient tolerated procedure well
[2020-08-07] MEDS ORDERED: KETOROLAC 15 MG/ML VIAL IVP STA (13:57)
[2020-08-07] MEDS ORDERED: ONDANSETRON 4 MG/2 ML VIAL ONE (13:58)
[2020-08-07] MEDS ORDERED: LACTATED RINGERS 1,000 ML IV ONE (13:59)
[2020-08-07 14:39] VITALS: BP 133/62
--- NOTE | 2020-08-07 14:50 | ANESTHESIA POST OP EVALUATION ---
Anesthesia Post Eval - Post Anesthesia Eval Vitals: Last Vital Signs Temp 36.5 C 08/07/20 14:39 Pulse 72 08/07/20 14:39 Resp 16 08/07/20 14:39 BP 133/62 H 08/07/20 14:39 Pulse Ox 98 08/07/20 14:39 CV Function Including HR & BP: positive: Stable Pain Control: positive: Satisfactory Nausea & Vomiting: positive: Negative Mental Status: positive: Baseline Respiratory Status: Airway Patent Hydration Status: Satisfactory Anesthesia Complications: positive: None
== END 2020-08-07 11:31 | disposition home or self-care (01) ==
LOC: SDS 11:30
PROVIDERS: ATTEND Orthopaedic Surgery
PROC: 0JBJ0ZZ Excision of Right Hand Subcutaneous Tissue and Fascia, Open Approach (ICD-10-PCS; principal; 2020-08-07 13:00)
DX: L72.0 Epidermal cyst (principal); E66.9 Obesity, unspecified; Z68.31 Body mass index [BMI] 31.0-31.9, adult
CPT/HCPCS: 11421; J7120

== ENCOUNTER 2020-08-15 15:30 | Outpatient (CLI) | payer MEDICARE | END 2020-08-15 15:31 | disposition critical access hospital (66) | LOC: EMS 15:30 | PROVIDERS: ATTEND Registered Nurse | DX: R55 Syncope and collapse (principal) | CPT/HCPCS: A0425; A0427 ==

== ENCOUNTER 2020-08-15 15:55 | Emergency (ER) | payer MEDICARE ==
[2020-08-15] MEDS ORDERED: SODIUM CHLORIDE 0.9% 1,000 ML IV STA (16:08)
--- NOTE | 2020-08-15 16:22 | ED Physician Documentation ---
History of Present Illness - Stated complaint Stated Complaint: SYNCOPE - Chief complaint Chief Complaint: Neuro - Additonal information Additional information: 6-year-old female presents emergency department for evaluation of a near syncopal episode. She was at a local walk-in clinic having her hand evaluated after recent cyst removal. She reports that when she was looking at her wound and the blood she began to feel lightheaded dizzy and felt as though she may pass out so she did attempt to put her head between her knees. Medical staff walked into the room became concerned and advised her to come to the emergency department. Patient did not have a syncopal event. She denies chest pain or shortness of breath. Right now she reports that she feels normal. She states that in the past she has had similar when encountering medical care especially if she sees blood. Patient's heart rate is noted to be in the 50s at this time. She states that this is normal for her. She is not on a beta-chato. Brief review of previous clinic and ER visits does show heart rates in the 50s 60s and sometimes even 40s Review of Systems Constitutional: denies: Fever, Chills Eyes: denies: Loss of vision, Decreased vision, Photophobia Ears: denies: Loss of hearing, Ear pain Nose: reports: Reviewed and negative Throat: reports: Reviewed and negative Cardiac: denies: Chest pain / pressure, Palpitations, Pedal edema, Calf pain Respiratory: denies: Dyspnea, Cough, Hemoptysis, Wheezing GI: denies: Abdominal Pain, Nausea, Vomiting : denies: Dysuria, Frequency Skin: reports: Lesions (right hand; cystectomy). denies: Rash Musculoskeletal: reports: Reviewed and negative Neurologic: reports: Near syncope. denies: Generalized weakness, Focal weakness, Numbness, Difficulty speaking, Syncope, Seizure, Confused, Altered mental status, Unresponsive, Headache, Head injury, LOC PD PAST MEDICAL HISTORY - Past Medical History Past Medical History: Yes Cardiovascular: Hypertension Respiratory: Asthma GI: Other - Past Surgical History Past Surgical History: Yes General: Other - Present Medications Home Medications: Ambulatory Orders Medication Instructions Recorded Confirmed Montelukast Sodium [Singulair] 10 mg PO DAILY 01/12/13 08/15/20 Multivitamin [Multivitamins] 1 each PO DAILY 01/12/13 08/15/20 Ascorbic Acid [Vitamin C] 1,000 mg PO DAILY 07/30/20 08/15/20 Calcium/Magnesium/Vit D3/[place] 1 each PO DAILY 07/30/20 08/15/20 [Calcium-Mag Oxide-Vit D3 Sftgl] Ciclesonide [Alvesco] 2 puffs IH BID 07/30/20 08/15/20 Lanreotide Acetate [Somatuline 120 mg SQ ONCE 07/30/20 08/15/20 Depot] Psyllium [Metamucil] 1 each PO DAILY 07/30/20 08/15/20 Amlodipine Besylate [Norvasc] 2.5 mg PO DAILY 08/12/20 08/15/20 - Allergies Allergies/Adverse Reactions: Allergies Allergy/AdvReac Type Severity Reaction Status Date / Time grass pollen Allergy Mild Rash Verified 08/15/20 16:03 grass pollen-perennial rye, Allergy Mild Rash Verified 08/15/20 16:03 standar [grass poll-perennial rye,std] house dust Allergy Mild Stuffy Nose Verified 08/15/20 16:03 - Social History Does the pt smoke?: No Smoking Status: Never smoker Does the pt drink ETOH?: Yes Does the pt have substance abuse?: No - Immunizations Immunizations are current?: No - POLST Patient has POLST: No PD ED PE NORMAL - General General: Alert and oriented X 3, No acute distress, Well developed/nourished - HEENT HEENT: Ears normal, Moist mucous membranes - Neck Neck: Supple, no meningeal sign, No bony TTP, No adenopathy - Cardiac Cardiac: RRR, No murmur - Respiratory Respiratory: No respiratory distress, Clear bilaterally - Abdomen Abdomen: Normal bowel sounds, Non tender, Non distended - Back Back: No CVA TTP, No spinal TTP - Derm Derm: Normal color, Warm and dry, No rash - Extremities Extremities: No deformity, No tenderness to palpate, Normal ROM s pain, No edema, No calf tenderness / cord - Neuro Neuro: Alert and oriented X 3, cellular plastics cutter 2-12 intact, No motor deficit, No sensory deficit Eye Opening: Spontaneous Motor: Obeys Commands Verbal: Oriented GCS Score: 15 Results - Vitals Vitals: Vital Signs - 24 hr 08/15/20 16:04 Temperature 37.0 C Heart Rate 52 L Respiratory 15 Rate Blood Pressure 120/56 L O2 Saturation 96 Oxygen O2 Source Room air - EKG (time done) 1620 Rate: Rate (enter#) (54) Rhythm: NSR [place]: Normal Intervals: Normal MS QRS: Normal Ischemia: Normal ST segments Compare to prior EKG: Unchanged from prior EKG Computer interpretation: Agree with computer - Labs Labs: Laboratory Tests 08/15/20 08/15/20 08/15/20 16:29 16:29 16:29 WBC 4.7 L RBC 3.85 L Hgb 12.2 Hct 36.0 L MCV 93.5 MCH 31.7 H MCHC 33.9 RDW 12.6 Plt Count 153 MPV 8.6 Neut # (Auto) 3.4 Lymph # (Auto) 0.6 L Armstrong # (Auto) 0.4 Eos # (Auto) 0.2 Baso # (Auto) 0.0 Absolute Nucleated RBC 0.00 Nucleated RBC % 0.0 Sodium 138 Potassium 3.8 Chloride 102 Carbon Dioxide 26 Anion Gap 10.0 BUN 23 H Creatinine 1.0 Estimated GFR (MDRD) 55 L Glucose 112 H Calcium 9.6 Total Bilirubin 0.5 AST 31 ALT 38 Alkaline Phosphatase 81 Troponin I High Sens 5.8 Total Protein 7.1 Albumin 4.2 Globulin 2.9 Albumin/Globulin Ratio 1.4 Lipase 20 L - Rads (name of study) CXR Radiology: Final report received (No acute cardiopulmonary process) PD MEDICAL DECISION MAKING - ED course Complexity details: reviewed results, re-evaluated patient, considered differential, d/w patient ED course: Alberto is a very well-appearing 69-year-old female who presents to the emergency department with a near syncopal episode while at the walk-in clinic where she was having her bandages removed for check after recent cyst removal. She reports multiple episodes in the past feeling faint and lightheaded when seeing her own blood and this was no different. She denied any chest pain or shortness of breath and she did not have a syncopal event. On presentation alert and oriented with no focal neuro deficits. Normal cerebellar exam EKG nonischemic. Screening labs show no anemia or electrolyte deficiencies or abnormalities. High-sensitivity troponin is negative chest x- ray shows no acute focal abnormalities. I suspect that this patient had a vasovagal event that she has had in the past. No findings at this time to suggest ACS, TIA, CVA. She ambulates well and wishes to be discharged home at this time which I feel is appropriate. Departure - Departure Disposition: 01 Home, Self Care Clinical Impression: Near syncope Condition: Stable Record reviewed to determine appropriate education?: Yes Instructions: ED Near Syncope Vasovagal Follow-Up: Whit Lanier MD [Primary Care Provider] - Comments: Priyanka you are seen in the emergency department today for a near fainting episode when you are having your hand wound evaluated. This is most likely of vasovagal event and it sounds like you have had these in the past with other medical procedures. Today your screening labs, EKG and chest x-ray are all essentially normal. I think it is okay for you to be discharged home. If at any point you develop chest pain, have shortness of breath fevers, sudden weakness or suddenly severe belly pain then please return immediately to the emergency department. Always use caution when you are having medical procedures as you may have similar events in the future.
--- NOTE | 2020-08-15 16:25 | XRAY Report ---
PROCEDURE: Chest 1 View X-Ray INDICATIONS: Chest pain TECHNIQUE: One view of the chest was acquired. COMPARISON: 04/11/2019 CT chest FINDINGS: Surgical changes and devices: None. Lungs and pleura: No pleural effusions or pneumothorax. Lungs are clear. Mediastinum: Mediastinal contours appear normal. Heart size is normal. Bones and chest wall: No suspicious bony lesions. Overlying soft tissues appear unremarkable. IMPRESSION: No acute cardiopulmonary process demonstrated radiographically. Reviewed by: Taz Sullivan MD on 08/15/2020 4:23 PM PDT Approved by: Taz Sullivan MD on 08/15/2020 4:23 PM PDT Station ID: [id number]
[2020-08-15 16:35] LABS: BASOPHILS % (AUTO) 0.6 %; EOSINOPHILS # (AUTO) 0.2 10^3/uL (0.0-0.7); EOSINOPHILS % (AUTO) 4.7 %; HGB - HEMOGLOBIN 12.2 g/dL (12.0-16.0); LYMPHOCYTES # (AUTO) 0.6 10^3/uL (1.5-3.5); LYMPHOCYTES % (AUTO) 13.3 %; MEAN CORPUSCULAR HEMOGLOBIN 31.7 pg (27.0-31.0); MEAN CORPUSCULAR HGB CONC 33.9 g/dL (32.0-36.0); MEAN CORPUSCULAR VOLUME 93.5 fL (81.0-99.0); MEAN PLATELET VOLUME 8.6 fL (7.9-10.8); MONOCYTES # (AUTO) 0.4 10^3/uL (0.0-1.0); MONOCYTES % (AUTO) 7.9 %; NEUTROPHILS # (AUTO) 3.4 10^3/uL (1.5-6.6); NEUTROPHILS % (AUTO) 73.1 %; PLT - PLATELET COUNT 153 10^3/uL (130-450); RED BLOOD COUNT 3.85 10^6/uL (4.20-5.40); RED CELL DISTRIBUTION WIDTH 12.6 % (12.0-15.0); WHITE BLOOD COUNT 4.7 x10^3/uL (4.8-10.8)
[2020-08-15 16:53] LABS: ALBUMIN 4.2 g/dL (3.2-5.5); ALBUMIN/GLOBULIN RATIO 1.4 (1.0-2.2); BILIRUBIN,TOTAL 0.5 mg/dL (0.2-1.0); CALCIUM 9.6 mg/dL (8.5-10.3); POTASSIUM 3.8 mmol/L (3.5-5.0); TOTAL PROTEIN 7.1 g/dL (6.7-8.2)
[2020-08-15 17:09] VITALS: BP 121/68
== END 2020-08-15 17:11 | disposition home or self-care (01) ==
LOC: EDUNIT# → SUPCPDRO 15:55 → ED 15:55
DX: R55 Syncope and collapse (principal); I10 Essential (primary) hypertension
CPT/HCPCS: 36415; 80053; 83690; 84484; 85025; 93005; 99284

== ENCOUNTER 2020-08-20 12:16 | Outpatient (CLI) | payer MEDICARE ==
--- NOTE | 2020-08-21 12:05 | Mammography Report ---
BILATERAL DIGITAL SCREENING MAMMOGRAM 3D/2D: 08/20/2020 CLINICAL: Routine screening. Comparison is made to exams dated: 02/07/2019 mammogram, 11/01/2017 mammogram, 10/20/2016 mammogram, an d 09/11/2015 mammogram - [facility]. The tissue of both breasts is predominantly fa tty. No significant masses, calcifications, or other findings are seen in either breast. There has been no significant interval change. IMPRESSION: NEGATIVE There is no mammographic evidence of malignancy. A 1 year screening mammogram is recommended. This exam was interpreted at Station ID: [id number]. NOTE: For mammograms, a report in lay terms will be sent to the patient. Approximately 15% of breast malignancies will not be visualized mammographically. In the management of a palpable breast mass, a negative mammogram must not discourage biopsy of a clinically suspicious lesion. Electronically Signed By: Gideon Holman acr/penrad:08/20/2020 13:45:26 ACR BI-RADS Category 1: Negative 3341F PARENCHYMAL PATTERN: (F) - The breast(s) demonstrate(s) diffuse fatty replacement. BI-RADS CATEGORY: (1) - 1 RECOMMENDATION: (ANNUAL) - Recommend routine annual screening mammography. [id number] 1 year screening LATERALITY: (B)
== END 2020-08-20 12:17 | disposition home or self-care (01) ==
LOC: DI 12:16
PROVIDERS: ATTEND Internal Medicine
DX: Z12.31 Encounter for screening mammogram for malignant neoplasm of breast (principal)

== ENCOUNTER 2020-11-01 15:17 | Outpatient (CLI) | payer MEDICARE ==
[2020-11-01 15:30] LABS: BASOPHILS % (AUTO) 0.9 %; EOSINOPHILS # (AUTO) 0.4 10^3/uL (0.0-0.7); EOSINOPHILS % (AUTO) 8.3 %; HCT - HEMATOCRIT 36.9 % (37.0-47.0); HGB - HEMOGLOBIN 12.5 g/dL (12.0-16.0); LYMPHOCYTES # (AUTO) 1.2 10^3/uL (1.5-3.5); LYMPHOCYTES % (AUTO) 26.2 %; MEAN CORPUSCULAR HEMOGLOBIN 31.5 pg (27.0-31.0); MEAN CORPUSCULAR HGB CONC 33.9 g/dL (32.0-36.0); MEAN CORPUSCULAR VOLUME 92.9 fL (81.0-99.0); MEAN PLATELET VOLUME 8.2 fL (7.9-10.8); MONOCYTES # (AUTO) 0.6 10^3/uL (0.0-1.0); NEUTROPHILS # (AUTO) 2.3 10^3/uL (1.5-6.6); NEUTROPHILS % (AUTO) 51.4 %; PLT - PLATELET COUNT 138 10^3/uL (130-450); RED BLOOD COUNT 3.97 10^6/uL (4.20-5.40); RED CELL DISTRIBUTION WIDTH 12.5 % (12.0-15.0); WHITE BLOOD COUNT 4.5 x10^3/uL (4.8-10.8)
[2020-11-01 15:50] LABS: ALBUMIN 4.4 g/dL (3.2-5.5); ALBUMIN/GLOBULIN RATIO 1.5 (1.0-2.2); BILIRUBIN,TOTAL 0.6 mg/dL (0.2-1.0); CALCIUM 9.4 mg/dL (8.5-10.3); CREATININE 0.9 mg/dL (0.4-1.0); POTASSIUM 3.8 mmol/L (3.5-5.0); TOTAL PROTEIN 7.4 g/dL (6.7-8.2)
[2020-11-01] MEDS ORDERED: IOPAMIDOL-300 50 ML VIAL PO ONE (17:20)
[2020-11-01] MEDS ORDERED: IOVERSOL 320 100 ML VIAL IVP ONE (17:20)
--- NOTE | 2020-11-02 07:03 | CT Report ---
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 5 mm thick coronal and sagittal reformats were acquired. For radiation dose reduction, the following was used: automated exposure control, adjustment of mA and/or kV according to patient size . COMPARISON: Prior CT abdomen/pelvis 02/20/2020. FINDINGS: Image quality: Excellent. ABDOMEN: Lung bases: Lung bases are clear. Heart size is normal. Stable prepericardial fat pad enhancing no dules present bilaterally, without change in size over time from the comparison study in January of last year. Mild prominence of the medial left pericardiophrenic fat pad, as was previously the case, as a normal variant. Solid organs: Liver and spleen are normal in size and enhancement. There is what appears to be mild fatty infiltration within the liver. There are several small enhancing plaque-like nodules along the hepatic capsular border, in this patient with previously documented peritoneal carcinomatosis and no evidence of intrahepatic mass lesion is found. Gallbladder has been resected Biliary system is non d ilated. Pancreas enhances normally. No adrenal nodules. Kidneys demonstrate normal size and enhanc ement, without hydronephrosis. Peritoneum and bowel: Bowel loops demonstrate normal wall thickness and caliber. No free fluid or a ir. Mild omental nodularity, previously present and described, is little if any change from the comp arison examination, best seen at the midline anteriorly near the abdomen/pelvis junction. For example , CT series 3 image 49. Nodes and vessels: Previously identified mild retroperitoneal and mesenteric adenopathy by size crite catherine and no definite worsening.. Aorta and inferior vena cava are normal in size. Miscellaneous: No ventral hernias. PELVIS: Genitourinary: Bladder wall thickness is normal. Miscellaneous: No inguinal hernias or adenopathy. The pattern of mild peritoneal carcinomatosis ext ends into the pelvis, right slightly greater than left. Bones: No suspicious bony lesions. No vertebral body compression fractures. IMPRESSION: Stable appearance of mild peritoneal carcinomatosis and retroperitoneal/mesenteric adeno alexi associated with carcinoid tumor in this patient. Prior cholecystectomy. No acute bone or soft t issue lesion found. Previously present injection granulomata at the fatty soft tissues of the gluteus region bilaterally is again noted. Reviewed by: Adan Harp MD on 11/02/2020 7:01 AM PDT Approved by: Adan Harp MD on 11/02/2020 7:01 AM PDT Station ID: [id number]
--- NOTE | 2020-11-02 07:18 | CT Report ---
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 7 mm thick coronal MIP reformats were acquired. For radia tion dose reduction, the following was used: automated exposure control, adjustment of mA and/or kV according to patient size. COMPARISON: 04/03/[address] Additional chest plain film imaging 08/15/2020.. FINDINGS: Image quality: Excellent. Lungs and pleura: No acute air space opacities. No pleural effusions or pneumothorax but there are several very small questionable nodules along the pleural surface at the posterior left diaphragm, torres ch as seen on series. Central and peripheral airways are patent and normal in caliber. Mediastinum: Heart size is normal. No pericardial effusion. No mediastinal or hilar adenopathy by size criteria, but there are prepericardial enhancing lymph nodes smaller in size than previously pre sent on the comparison CT 04/03/2019. The current short axis dimension of the largest nodule, on the right, measures up to 8 mm, with a long axis dimension estimated at 10 mm.. Thoracic aorta and centr al pulmonary arteries are normal in size. Esophagus is normal in caliber. No hiatal hernia. Bones and chest wall: No suspicious bony lesions. No vertebral body compression fractures. No axil rich or supraclavicular adenopathy by size criteria. The thyroid is normal in size and there is a si ngle incidental finding of a cyst measuring 1.4 cm within the right thyroid lobe.. Abdomen: Visualized upper abdominal solid organs appear normal. Upper abdominal bowel loops are nor mal in caliber. Prior cholecystectomy. Possible small enhancing nodule measuring 5 x 7 mm at the sup erior right hepatic dome posteromedially seen on series 2 image 40. Please refer to the abdomen CT fo r further discussion of retroperitoneal/mesenteric adenopathy and peritoneal carcinomatosis in this p atient. IMPRESSION: Mild interval reduction in size in abnormal enhancing prepericardial lymph nodes, with reference to t he study from March 2019. Note is made of a small enhancing nodule within the upper margin of the hepatic parenchyma, seen josie cent to the dome of the right hemidiaphragm medially. This was present on the prior examination and is a nonspecific finding. For example this could represent an enhancing unilocular hemangioma but als o might represent a small metastatic nodule from carcinoid tumor. Additional significant findings within the abdomen are discussed in detail in the abdomen/pelvis repo rt from same day. Incidental note is made of a water density simple appearing right thyroid cyst. Reviewed by: Adan Harp MD on 11/02/2020 7:16 AM PDT Approved by: Adan Harp MD on 11/02/2020 7:16 AM PDT Station ID: [id number]
== END 2020-11-01 15:18 | disposition home or self-care (01) ==
LOC: LAB 15:17
PROVIDERS: ATTEND Physician Assistant
DX: Z08 Encounter for follow-up examination after completed treatment for malignant neoplasm (principal); C7A.019 Malignant carcinoid tumor of the small intestine, unspecified portion; C7B.04 Secondary carcinoid tumors of peritoneum; R93.5 Abnormal findings on diagnostic imaging of other abdominal regions, including retroperitoneum; R59.0 Localized enlarged lymph nodes
CPT/HCPCS: 36415; 71260; 74177; 80053; 85025; Q9967

== ENCOUNTER 2021-04-03 11:18 | Outpatient (CLI) | payer MEDICARE ==
--- NOTE | 2021-04-03 16:22 | XRAY Report ---
PROCEDURE: Hand 3 View BILAT INDICATIONS: BILAT HAND PAIN TECHNIQUE: 3 views of the bilateral hand(s) acquired. COMPARISON: None. FINDINGS: BONES: No acute, displaced fracture or dislocation. Diffuse osteopenia. Right: Mild to moderate arthrosis of the first carpometacarpal articulation. Juxta-articular erosive changes are seen. Left: Mild to moderate arthrosis of the first carpometacarpal articulation. Juxta-articular erosive changes are seen. SOFT TISSUES: No focal abnormality. IMPRESSION: 1.Diffuse osteopenia with erosive changes, which may reflect an inflammatory arthropathy. Reviewed by: Esteban Galo MD on 04/03/2021 4:20 PM [facility] Approved by: Esteban Galo MD on 04/03/2021 4:20 PM [facility] Station ID: [id number]
== END 2021-04-03 11:19 | disposition home or self-care (01) ==
LOC: DI 11:18
PROVIDERS: ATTEND Internal Medicine
DX: M18.0 Bilateral primary osteoarthritis of first carpometacarpal joints (principal); M85.842 Other specified disorders of bone density and structure, left hand; M85.841 Other specified disorders of bone density and structure, right hand

== ENCOUNTER 2021-06-04 08:00 | Outpatient (CLI) | payer MEDICARE ==
[2021-06-04 15:45] LABS: BASOPHILS # (AUTO) 0.1 10^3/uL (0.0-0.1); BASOPHILS % (AUTO) 1.5 %; EOSINOPHILS # (AUTO) 0.2 10^3/uL (0.0-0.7); EOSINOPHILS % (AUTO) 6.2 %; HCT - HEMATOCRIT 39.8 % (37.0-47.0); HGB - HEMOGLOBIN 13.2 g/dL (12.0-16.0); LYMPHOCYTES # (AUTO) 0.8 10^3/uL (1.5-3.5); LYMPHOCYTES % (AUTO) 23.4 %; MEAN CORPUSCULAR HEMOGLOBIN 30.8 pg (27.0-31.0); MEAN CORPUSCULAR HGB CONC 33.2 g/dL (32.0-36.0); MEAN PLATELET VOLUME 9.1 fL (7.9-10.8); MONOCYTES # (AUTO) 0.4 10^3/uL (0.0-1.0); MONOCYTES % (AUTO) 11.5 %; NEUTROPHILS # (AUTO) 1.9 10^3/uL (1.5-6.6); NEUTROPHILS % (AUTO) 57.1 %; PLT - PLATELET COUNT 186 10^3/uL (130-450); RED BLOOD COUNT 4.28 10^6/uL (4.20-5.40); RED CELL DISTRIBUTION WIDTH 12.9 % (12.0-15.0); WHITE BLOOD COUNT 3.4 x10^3/uL (4.8-10.8)
[2021-06-04 15:53] LABS: SODIUM 140 mmol/L (135-145)
[2021-06-04 15:54] LABS: ALBUMIN 4.3 g/dL (3.2-5.5); ALBUMIN/GLOBULIN RATIO 1.4 (1.0-2.2); ALKALINE PHOSPHATASE 78 IU/L (42-121); ALT ALANINE AMINOTRANSFERASE 32 IU/L (10-60); AST ASPARTATE AMINOTRANSFERASE 28 IU/L (10-42); BILIRUBIN,TOTAL 0.7 mg/dL (0.2-1.0); BUN - BLOOD UREA NITROGEN 20 mg/dL (6-20); CALCIUM 9.2 mg/dL (8.5-10.3); CARBON DIOXIDE - CO2 26 mmol/L (21-32); CHLORIDE 103 mmol/L (101-111); CHOL/HDL RATIO 5.7 (<4.4); CHOLESTEROL 284 mg/dL; CREATININE 0.9 mg/dL (0.4-1.0); GFR - MDRD 62 (>89); GLUCOSE 111 mg/dL (70-100); HDL CHOLESTEROL 50 mg/dL; LDL CHOLESTEROL,CALCULATED 189 mg/dL; LDL/HDL RATIO 3.8 (<4.4); POTASSIUM 4.2 mmol/L (3.5-5.0); TOTAL PROTEIN 7.4 g/dL (6.7-8.2); TRIGLYCERIDES 226 mg/dL; VLDL CHOLESTEROL 45 mg/dL
[2021-06-04 16:06] LABS: THYROID STIMULATING HORMONE 1.23 uIU/mL (0.34-5.60)
[2021-06-04 20:13] LABS: ESTIMATED AVERAGE GLUCOSE 134 mg/dL (70-100); HEMOGLOBIN A1c% 6.3 % (4.27-6.07)
== END 2021-06-04 23:59 ==
LOC: LAB.R 08:00
PROVIDERS: ATTEND Internal Medicine
DX: Z00.00 Encounter for general adult medical examination without abnormal findings (principal); D64.9 Anemia, unspecified; D48.9 Neoplasm of uncertain behavior, unspecified; Z86.010 Personal history of colon polyps; E78.5 Hyperlipidemia, unspecified; I10 Essential (primary) hypertension; R73.01 Impaired fasting glucose; J45.909 Unspecified asthma, uncomplicated; M06.9 Rheumatoid arthritis, unspecified
CPT/HCPCS: 80053; 80061; 81599; 82607; 83036; 83721; 84443; 85025

== ENCOUNTER 2021-06-05 12:31 | Outpatient (CLI) | payer MEDICARE | END 2021-06-05 12:32 | disposition home or self-care (01) | LOC: LAB 12:31 | PROVIDERS: ATTEND Internal Medicine | DX: Z00.00 Encounter for general adult medical examination without abnormal findings (principal); D64.9 Anemia, unspecified; D48.9 Neoplasm of uncertain behavior, unspecified; Z86.010 Personal history of colon polyps; E78.5 Hyperlipidemia, unspecified; I10 Essential (primary) hypertension; R73.01 Impaired fasting glucose; J45.909 Unspecified asthma, uncomplicated; M06.9 Rheumatoid arthritis, unspecified | CPT/HCPCS: 81599; 86316 ==

== ENCOUNTER 2021-09-16 09:31 | Day surgery (SDC) | payer MEDICARE ==
[2021-09-16] MEDS ORDERED: LACTATED RINGERS 1,000 ML IV ONE ×2 (09:44→11:05)
[2021-09-16] MEDS ORDERED: PROPOFOL 500 MG/50 ML 500 MG/50 ML VIAL ONE (10:02)
--- NOTE | 2021-09-16 10:04 | ANESTHESIA ---
Pre-Anesthesia VS, & Labs - Diagnosis screening exam - Procedure colonoscopy Vital Signs: Temp Pulse Resp BP Pulse Ox 36.2 C L 65 12 163/92 H 96 09/16/21 09:51 09/16/21 09:51 09/16/21 09:51 09/16/21 09:51 09/16/21 09:51 Height: 5 ft 3 in Weight (kg): 80 kg Body Mass Index: 31.2 BMI Classification: Obese - NPO >8 hours - Is Patient ?: No Home Medications and Allergies Montelukast Sodium [Singulair] 10 mg PO DAILY 01/12/13 Multivitamin [Multivitamins] 1 each PO DAILY 01/12/13 Ascorbic Acid [Vitamin C] 1,000 mg PO DAILY 07/30/20 Calcium/Magnesium/Vit D3/[place] [Calcium-Mag Oxide-Vit D3 Sftgl] 1 each PO DAILY 07/30/20 Ciclesonide [Alvesco] 2 puffs IH BID 07/30/20 Lanreotide Acetate [Somatuline [place]] 120 mg SQ ONCE 07/30/20 Psyllium [Metamucil] 1 each PO DAILY 07/30/20 Amlodipine Besylate [Norvasc] 2.5 mg PO DAILY 08/12/20 Hydroxychloroquine [Plaquenil] 400 mg PO DAILY 07/21/21 Meloxicam [Mobic] 1 tablet PO DAILY PRN 07/21/21 Allergies/Adverse Reactions: Allergies Allergy/AdvReac Type Severity Reaction Status Date / Time grass pollen Allergy Mild Rash Verified 02/03/21 12:21 grass pollen-perennial rye, Allergy Mild Rash Verified 02/03/21 12:21 standar [grass poll-perennial rye,std] house dust Allergy Mild Stuffy Nose Verified 02/03/21 12:21 Anes History & Medical History - Anesthetic History Anesthesia Complications: reports: No previous complications - Medical History Cardiovascular: reports: Hypertension Pulmonary: reports: Asthma Gastrointestinal: reports: Colon polyps Urinary: reports: None Neuro: reports: None Musculoskeletal: reports: Rheumatoid arthritis Endocrine/Autoimmune: reports: None Blood Disorders: reports: None Skin: reports: None Smoking Status: Never smoker Psychosocial: reports: No issues indicated 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
[2021-09-16] MEDS ORDERED: GLYCOPYRROLATE 1 MG/5 ML VIAL ONE (11:02)
[2021-09-16 11:30] VITALS: BP 145/78
--- NOTE | 2021-09-16 12:11 | ANESTHESIA POST OP EVALUATION ---
Anesthesia Post Eval - Post Anesthesia Eval Vitals: Last Vital Signs Temp 36.3 C L 09/16/21 11:28 Pulse 67 09/16/21 11:28 Resp 18 09/16/21 11:28 BP 145/78 H 09/16/21 11:28 Pulse Ox 97 09/16/21 11:28 CV Function Including HR & BP: Stable Pain Control: Satisfactory Nausea & Vomiting: Negative Mental Status: Baseline Respiratory Status: Airway Patent Hydration Status: Satisfactory Anesthesia Complications: None
== END 2021-09-16 09:32 | disposition home or self-care (01) ==
LOC: SDS 09:31
PROVIDERS: ATTEND Surgery
DX: Z12.11 Encounter for screening for malignant neoplasm of colon (principal); K57.30 Diverticulosis of large intestine without perforation or abscess without bleeding; K64.4 Residual hemorrhoidal skin tags; K64.8 Other hemorrhoids; E34.0 Carcinoid syndrome; I10 Essential (primary) hypertension; E66.9 Obesity, unspecified; J45.909 Unspecified asthma, uncomplicated; Z68.31 Body mass index [BMI] 31.0-31.9, adult; Z85.9 Personal history of malignant neoplasm, unspecified; Z86.010 Personal history of colon polyps; Z87.891 Personal history of nicotine dependence; Z92.3 Personal history of irradiation
CPT/HCPCS: G0121; J7120

== ENCOUNTER 2021-10-13 12:20 | Outpatient (CLI) | payer MEDICARE | END 2021-10-13 12:21 | disposition home or self-care (01) | LOC: LAB 12:20 | PROVIDERS: ATTEND Specialist/Technologist Athletic Trainer | DX: M05.9 Rheumatoid arthritis with rheumatoid factor, unspecified (principal); Z79.899 Other long term (current) drug therapy | CPT/HCPCS: 36415; 81599; 85651; 86140 ==

== ENCOUNTER 2022-11-13 14:01 | Outpatient (CLI) | payer MEDICARE ==
--- NOTE | 2022-11-16 09:52 | Mammography Report ---
BILATERAL DIGITAL SCREENING MAMMOGRAM 3D/2D: 11/13/2022 CLINICAL: Routine screening. Comparison is made to exams dated: 08/25/2021 mammogram, 08/20/2020 mammogram, 02/07/2019 mammogram, and 11/01/2017 mammogram - [facility]. There are scattered areas of fibroglandular density in both breasts (category b / 25%-50% glandular t issue). There are benign vascular calcifications in the left breast. No significant masses, calcifications, or other findings are seen in either breast. There has been no significant interval change. IMPRESSION: BENIGN There is no mammographic evidence of malignancy. A 1 year screening mammogram is recommended. Based on the Tyrer Cuzick model (a risk assessment model) the patients lifetime risk is 3.6% and her 10 year risk is 2.9%. According to the ACR, ACS, and NCCN guidelines, an annual breast MRI exam thelma g with mammogram is recommended if the patients lifetime risk is 20% or greater. This exam was interpreted at Station ID: [id number]. NOTE: For mammograms, a report in lay terms will be sent to the patient. Approximately 15% of breast malignancies will not be visualized mammographically. In the management of a palpable breast mass, a negative mammogram must not discourage biopsy of a clinically suspicious lesion. Electronically Signed By: Jesus park/lucina:11/13/2022 17:12:28 letter sent: No_Letter ACR BI-RADS Category 2: Benign Finding(s) 3342F PARENCHYMAL PATTERN: (A) - The breast(s) demonstrate(s) scattered fibroglandular densities. BI-RADS CATEGORY: (2) - 2 Mammogram [id number] 1 year screening LATERALITY: (B)
== END 2022-11-13 14:02 | disposition home or self-care (01) ==
LOC: DI 14:01
PROVIDERS: ATTEND Internal Medicine
DX: Z12.31 Encounter for screening mammogram for malignant neoplasm of breast (principal)

== ENCOUNTER 2023-03-29 10:41 | Outpatient (CLI) | payer MEDICARE | END 2023-03-29 10:42 | disposition home or self-care (01) | LOC: LAB 10:41 | PROVIDERS: ATTEND Specialist/Technologist Athletic Trainer | DX: M05.9 Rheumatoid arthritis with rheumatoid factor, unspecified (principal); Z51.81 Encounter for therapeutic drug level monitoring; Z79.899 Other long term (current) drug therapy | CPT/HCPCS: 36415; 81599; 85651; 86140 ==